=== PATIENT | male | born 1970 | race Caucasian/White ===

== ENCOUNTER 2024-04-15 07:04 | Day surgery (SDC) | payer OTHER, SELFPAY ==
[2024-04-15] VITALS (8 sets, daily range): BP systolic 98–140; BP diastolic 65–86; BMI 22.7
[2024-04-15] MEDS: LOW STRENGTH ASPIRIN 324 MG PO (07:49)
[2024-04-15] MEDS: NSS 191 ML IV (07:50)
--- NOTE | 2024-04-15 09:53 | ITS.CL.CATH ---
Rehabilitation Teacher - Catheterization
Cardiac Catheterization
Procedure Report:
CARDIAC CATHETERIZATION REPORT
Date of Procedure: 04/15/2024
Referring: Thaddeus Vanegas MD
Indication: Episodic shortness of breath
HEMODYNAMIC DATA
AO: 123/81
LV: 123/12
LEFT VENTRICULOGRAPHY: Normal left ventricular wall motion with EF 67%
CORONARY ANGIOGRAPHY
Dominance: Right
Left Main: Normal
LAD: Normal
Circumflex: Normal
RCA: Normal dominant vessel
Closure Device: None- the procedure was performed via the right radial artery
Radiation (mGy): 96
DAP (cm2.Gy): 8.9
Fluoro time: 1.8 minutes
CONCLUSIONS
1: Normal left ventricular wall motion with EF 67%
2: Normal coronary arteries
Copy to: Thaddeus Vanegas MD, Beti Cabrera, DO
Juan José Aguilera MD, FACC, [facility]
== END 2024-04-15 12:16 | disposition home or self-care (01) ==
LOC: CATH 07:04
PROVIDERS: ATTENDING PHYSICIAN Internal Medicine Cardiovascular Disease; FAMILY PHYSICIAN Family Medicine; OTHER PHYSICIAN Internal Medicine Cardiovascular Disease
DX: R07.9 Chest pain, unspecified (principal); R06.02 Shortness of breath; R00.1 Bradycardia, unspecified; E78.5 Hyperlipidemia, unspecified; Z79.82 Long term (current) use of aspirin
CPT/HCPCS: 93458; C1894; Q9967